=== PATIENT | male | born 1995 | race Caucasian/White ===

== ENCOUNTER 2017-02-02 20:21 | Emergency (ER) | payer MEDICAID ==
[~2017-02-02] VITALS: Ht 170.2 cm; Wt 72.7 kg
[~2017-02-02 20:21] MED LIST: LICE TREATMENT; PRCD5U PO
--- OUTSIDE RECORDS SUMMARY | 2017-02-02 20:25 | XMS REPORT | Continuity of Care Document ---
Author Author [facility] Organization [facility] Address Unknown Phone Unavailable Support Name Relationship Address Phone FAIZAN HOWARD MD Caregiver [address] [place], [place] [address] DEBORA MARTÍNEZ Next Of Kin [address] [place] [address] Insurance Providers Payer Name Policy Number Subscriber Name Relationship [facility] [id number] Xavi Bates 16 Self / Same As Patient Chief Complaint and Reason for Visit Chief Complaint Skin Condition Reason for Visit Callus of foot Screening for head lice Problems Medical Problems Problem Onset Date Status Upper respiratory infection Unknown Active Screening for head lice ~12/25/2014 Active Callus of foot Unknown Active Medications Medication Dose Route Sig Days/Qty Instructions Order Date Discontinued Date Status Promethazine/Codeine 5 Ml ORAL EVERY 6 HOURS PRN COUGH 120 Qty 01/01/15 Discontinued [lice treatment] 01/01/15 Active Social History No social history. Hospital Discharge Instructions No hospital discharge instructions. Plan of Care Discharge Date 01/01/15 4:07pm Disposition 01 HOME OR SELF-CARE Condition at Discharge Stable Instructions/Education Provided Head Lice in Children (ED) Prescriptions See Medications Section Additional Instructions/Education Consider buying wider shoes or using padding around the tender site. At this time, I see no evidence of continued head lice. You may return to work. Some of your test results may not be complete prior to your leaving the Emergency Department. The Emergency Department is not authorized to give test results over the phone. Please contact the doctor's office listed in this packet of information for your final results. Follow up with your primary care physician or return to the Emergency Department for worsening or worrisome symptoms. * Emergency Department phone number: [phone], x [phone]* MEDICAL RECORD If you need copies of your X-rays, call [phone]. If you need copies of your medical record, including lab results, a signed authorization for release of records will be required. A telephone call for release of Health Information is not allowed. BILLING Billing can sometimes be confusing and frustrating. To help avoid confusion in the future, please take a moment to acquaint yourself with the billing parties for services. SERVICE BILLING [employer] Emergency Room Services [facility] Physician Services [facility] X-rays [facility] Patients will receive bills for services from the appropriate provider. If you have any questions about your [facility] bill, our staff will be happy to assist you. Please call [phone], and ask for the billing department. THANK YOU for choosing [facility] as your emergency care provider! Functional Status No functional status results. Allergies, Adverse Reactions, Alerts Allergen Type Severity Reaction Status Last Updated Penicillin Allergy Unknown rash Active 01/01/15 Immunizations No immunization records. Vital Signs Acute Vital Signs Vital Response Date/Time Temperature (Fahrenheit) 98.6 Pulse 88 bpm Respirations 16 Height 5 ft 7 in Weight 147 lb Body Mass Index 23.0 kg/m^2 Results Test Source Date Result Interp. Ref. Range Comments Influenza Virus Type B Antibody December 11, 2014 2:30pm Negative Influenza Virus Type A Antibody December 11, 2014 2:30pm Negative Procedures Procedure Status Date Provider(s) INFLUENZA A/B AG EIA completed 12/11/14 EMERGENCY DEPT VISIT completed 12/11/14 Encounters Encounter Location Date/Time Departed Emergency Room [facility] 01/01/15 3:15pm Departed Emergency Room [facility] 12/11/14 2:16pm Recent Diagnosis
--- OUTSIDE RECORDS SUMMARY | 2017-02-02 20:27 | XMS REPORT | Continuity of Care Document ---
Author Author [facility] Organization [facility] Address Unknown Phone Unavailable Support Name Relationship Address Phone FAIZAN HOWARD MD Caregiver [address] [place], [place] [address] DEBORA MARTÍNEZ Next Of Kin [address] [place] [address] Insurance Providers Payer Name Policy Number Subscriber Name Relationship [facility] [id number] Xavi Bates 16 Self / Same As [...] worrisome symptoms. * Emergency Department phone number: [phone], x [phone]* MEDICAL RECORD If you need copies of your X-rays, call [phone]. If you need copies of [...] the billing parties for services. SERVICE BILLING [facility] Emergency Room Services [facility] Physician Services [facility] X-[facility] Patients will receive bills for services from the appropriate provider. If you have any questions about your [facility] bill, our staff will be happy to assist you. Please call [phone], and ask for the billing department. THANK YOU for choosing [facility] as your emergency care provider! Functional [...] Encounters Encounter Location Date/Time Departed Emergency Room [facility] 01/01/15 3:15pm Departed Emergency Room [facility] 12/11/14 2:16pm Recent Diagnosis
[2017-02-02] MEDS ORDERED: OMEP20CA12 PO (20:44)
[2017-02-02] MEDS ORDERED: BUPR1PAT4 TD (20:45)
[2017-02-02] MEDS ORDERED: ONDANSETRON 2 MG/ML (Z0FRAN) 2 ML VIAL IV ONE (21:20)
[2017-02-02] MEDS ORDERED: SODIUM CHLORIDE FLUSH 3 ML SYR IV PRN (21:20)
[2017-02-02] MEDS ORDERED: GI COCKTAIL 55 ML UDC PO ONE (21:20)
[2017-02-02] MEDS ORDERED: SODIUM CHLORIDE FLUSH 10 ML SYR IV PRN (21:20)
[2017-02-02] MEDS ORDERED: BELLADONNA/PHENOBARBITAL ELIXIR (DONNATAL) 10 ML UDC ONE (22:17)
[2017-02-02] MEDS ORDERED: MAG HYDROX/AL HYDROX/SIMETH 400-400-40/5 ML (MAG-AL PLUS XS) 30 ML UDC ONE (22:17)
[2017-02-02] MEDS ORDERED: LIDOCAINE 2% VISCOUS 20ML UDC PO ONE (22:17)
[2017-02-02 22:38] LABS: BASOPHILS % (AUTO) 1 % (0-2); EOSINOPHILS # (AUTO) 0.1 10^3uL; EOSINOPHILS % (AUTO) 1 % (0-4); MEAN CORPUSCULAR HEMOGLOBIN 28.8 PG (26.0-34.0); MEAN CORPUSCULAR HGB CONC 34.9 g/dL (31.0-37.0); MEAN CORPUSCULAR VOLUME 83 FL (80-100); MEAN PLATELET VOLUME 9.2 FL (6.0-9.5); MONOCYTES # (AUTO) 1.2 X10^3; MONOCYTES % (AUTO) 10 % (3-11); NEUTROPHILS # (AUTO) 7.8 X10^3; NEUTROPHILS % (AUTO) 64 % (51-67); PLATELET COUNT 326 10^3uL (150-450); WHITE BLOOD COUNT 12.12 10^3uL (4.0-11.0)
[2017-02-02 22:51] LABS: ALBUMIN 4.6 g/dL (3.4-5.0); ALKALINE PHOSPHATASE 64 U/L (38-126); AMYLASE* 90 U/L (25-115); BUN/CREATININE RATIO 24 (10-20); LIPASE* 60 U/L (23-300); TOTAL PROTEIN 7.9 g/dL (6.4-8.5)
[2017-02-02] MEDS ORDERED: FAMOTIDINE 20 MG (PEPCID) TABLET PO ONE (23:00)
[2017-02-02] MEDS ORDERED: PANTOPRAZOLE 40 MG (PROTONIX) TAB PO ONE (23:00)
[2017-02-02 23:28] VITALS: BP 122/73
[2017-02-02 23:49] LABS: BILIRUBIN,URINE Negative (Negative); CLARITY,URINE Clear; COLOR,URINE Yellow; GLUCOSE, URINE (UA) Negative (Negative); LEUKOCYTE ESTERASE ,URINE Negative (Negative); PH,URINE 5.5 (5.0 - 8.0); UROBILINOGEN,URINE 0.2 mg/dL (0.2-1.0)
--- NOTE | 2017-02-03 08:07 | Diagnostic Imaging Report ---
PROCEDURE: CT head without contrast. TECHNIQUE: Multiple contiguous axial images were obtained through the brain without the use of intravenous contrast. INDICATION: Ventricular shunt, pressure behind left ear. COMPARISON STUDY: CT scan of the head from 06/28/2016. 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 Lateral and third ventricles remain normal in size with stable dilatation of the fourth ventricle. Basilar cisterns appear normal. No mass effect, midline shift, hemorrhage or extra-axial fluid collections are present. Bone windows appear unremarkable. Previous right frontal defect is present with previous shunt tube on that side. No fluid is seen in the mastoid air cells or visualized portions of the paranasal sinuses. IMPRESSION: Stable left frontal ventricular peritoneal shunt tube. Ventricles, cortical sulci and basilar cisterns are unchanged. Fourth ventricle remains mildly dilated. Dictated by: Dictated on workstation # [id number]
== END 2017-02-02 23:30 | disposition home or self-care (01) ==
LOC: ED 20:22
DX: F11.23 Opioid dependence with withdrawal (principal); G44.40 Drug-induced headache, not elsewhere classified, not intractable; T40.2X5A Adverse effect of other opioids, initial encounter; Z98.2 Presence of cerebrospinal fluid drainage device; F17.210 Nicotine dependence, cigarettes, uncomplicated
CPT/HCPCS: 36415; 70450; 80053; 81003; 82150; 83690; 85025; 86140; 96360; 99284; A9270; J7030; 99283